=== PATIENT | female | born 1985 | race Caucasian/White ===

== ENCOUNTER → 2022-10-12 | Outpatient (CLI) | payer OTHER ==
[~2022-10-12] MED LIST: ANTOXYBENA BOTHEARS; ATEN25; Albuterol17 G1 INH; Amoxicillin500 MG PO; CEPH500 PO; CYCL10 PO; Cleocin HCl150 MG PO; FAMO20 PO; IBUP600 PO; IBUP800 PO; LORA.5 PO; MUCINEX; MUSCLE RELAXER; Methimazole5 MG; Monodox100 MG PO; PHENA200 PO; Pepcid20 MG PO; Percocet 5-3251 EACH PO; SULTRIDS PO; Synthroid200 MCG PO; TOBR.3OPSO BOTHEYES; TRAM50 PO; ZPAC; Zofran Odt4 MG SL; [UNRECOGNIZED DRUG - OTHER]
[2022-10-12 08:29] LABS: Source, Urine Clean Catch
[2022-10-12 09:30] LABS: Appearance, Urine Hazy (Clear); Bilirubin, Urine Neg (Neg); Blood, Urine 1+ (Neg); Color, Urine Yellow (P-Yellow); Glucose Qualitative, Urine Neg (Neg); Ketones, Urine 1+ (Neg); Leukocyte Esterase, Urine Neg (Neg); Nitrite, Urine Neg (Neg); Protein, Urine 2+ (Neg); Specific Gravity, Urine 1.025 (1.003-1.022); Urobilinogen, Urine NORM (Normal)
[2022-10-12 09:46] LABS: Bacteria Mod /hpf; Red Blood Cells, Urine 0-2 /hpf (0-2); Squamous Epithelial Cells Many /hpf (Few)
[2022-10-12 09:47] LABS: Mucus Mod (0-Heavy)
[2022-10-12 09:51] LABS: BASOPHILS ABSOLUTE AUTO 0.07 K/mm3 (0.00-0.23); BASOPHILS PERCENT AUTO 1 % (0-2); EOSINOPHILS ABSOLUTE AUTO 0.04 K/mm3 (0.00-0.68); EOSINOPHILS PERCENT AUTO 1 % (0-6); Hematocrit 33.3 % (33.0-51.0); IMMATURE GRAN ABSOLUTE AUTO 0.09 K/mm3 (0.00-0.10); IMMATURE GRAN PERCENT AUTO 1 % (0-1); LYMPHOCYTES PERCENT AUTO 20 % (21-46); MONOCYTES ABSOLUTE AUTO 0.41 K/mm3 (0.16-1.47); MONOCYTES PERCENT AUTO 5 % (4-13); Mean Corpuscular HGB 30.8 pg (26.0-34.0); Mean Corpuscular Volume 93 fL (80-100); Mean Platelet Volume 10.4 fL (9.1-12.4); NEUTROPHILS ABSOLUTE AUTO 6.08 K/mm3 (1.96-9.15); NEUTROPHILS PERCENT AUTO 72 % (41-73); Platelet Count 369 K/mm3 (150-400); RDW Coefficient Variation 12.8 % (11.7-14.2); RDW Standard Deviation 43.7 fL (35.1-46.3); Red Blood Cell Count 3.57 M/mm3 (3.80-5.20); White Blood Cell Count 8.39 K/mm3 (4.00-11.30)
[2022-10-12 10:15] LABS: Alanine Aminotransfer (ALT/SGP 29 U/L (12-78); Albumin, Blood 4.5 g/dL (3.4-5.0); Albumin/Globulin Ratio 1.4 (0.8-1.8); Alk Phos 53 U/L (50-136); Anion Gap 8 mmol/L (6-16); Aspartate Aminotrans (AST/SGOT 27 U/L (12-37); Bilirubin, Total 0.5 mg/dL (0.1-1.0); Blood Urea Nitrogen 13 mg/dL (8-24); Bun/Creatinine Ratio 12.4 (12.0-20.0); CHOL/HDL RATIO 7.4; CO2, Blood 25 mmol/L (21-32); Chloride, Blood 105 mmol/L (98-108); Cholesterol 327 mg/dL (50-200); Creatinine, Blood 1.05 mg/dL (0.40-1.00); Globulin, Blood 3.3 g/dL (2.2-4.0); Glomerular Filtration Rate 70 (60-); Glucose, Blood 95 mg/dL (70-99); HDL Cholesterol 44 mg/dL (>39); LDL/HDL RATIO 5.8; Low Density Lipoprotein Chol 254 mg/dL (0-110); Potassium, Blood 3.7 mmol/L (3.5-5.5); Sodium, Blood 138 mmol/L (136-145); Total Protein, Blood 7.8 g/dL (6.4-8.2); Triglycerides 143 mg/dL (30-140); Very Low Density Lipoprot Chol 28 mg/dL (6-28)
== END | disposition home or self-care (01) ==
LOC: LAB SHORT 08:26 → LAB 08:26
PROVIDERS: Nurse Practitioner Family
DX: Z00.00 Encounter for general adult medical examination without abnormal findings (principal); N10 Acute pyelonephritis
CPT/HCPCS: 80053; 80061; 81001; 83036; 84443; 85025; 87086

== ENCOUNTER 2024-04-28 17:45 | Emergency (ER) | payer OTHER ==
[~2024-04-28] VITALS: Ht 170.2 cm; Wt 81.7 kg
[2024-04-28 17:54] VITALS: BP 123/90
== END 2024-04-28 22:11 | disposition home or self-care (01) ==
LOC: ER 17:45
DX: S61.411A Laceration without foreign body of right hand, initial encounter (principal); W26.0XXA Contact with knife, initial encounter; Z88.8 Allergy status to other drugs, medicaments and biological substances; Z87.891 Personal history of nicotine dependence
CPT/HCPCS: 12001; 73130; 99283-25

== ENCOUNTER 2025-01-13 12:35 | Observation (INO) | payer OTHER ==
[~2025-01-13] VITALS: Ht 170.2 cm; Wt 79.4 kg
[2025-01-13 13:32] LABS: BASOPHILS ABSOLUTE AUTO 0.09 K/mm3 (0.00-0.23); BASOPHILS PERCENT AUTO 0 % (0-2); EOSINOPHILS ABSOLUTE AUTO 0.13 K/mm3 (0.00-0.68); EOSINOPHILS PERCENT AUTO 1 % (0-6); Hematocrit 42.5 % (33.0-51.0); Hemoglobin 13.6 g/dL (11.5-16.0); IMMATURE GRAN ABSOLUTE AUTO 0.20 K/mm3 (0.00-0.10); IMMATURE GRAN PERCENT AUTO 1 % (0-1); LYMPHOCYTES ABSOLUTE AUTO 1.32 K/mm3 (0.84-5.20); LYMPHOCYTES PERCENT AUTO 6 % (21-46); MONOCYTES ABSOLUTE AUTO 1.81 K/mm3 (0.16-1.47); MONOCYTES PERCENT AUTO 8 % (4-13); Mean Corpuscular HGB Conc 32.0 g/dL (31.5-36.5); Mean Corpuscular Volume 86 fL (80-100); NEUTROPHILS ABSOLUTE AUTO 19.87 K/mm3 (1.96-9.15); NEUTROPHILS PERCENT AUTO 85 % (41-73); NRBC ABSOLUTE 0.00 K/mm3 (0.00-0.02); NRBC Auto 0.0 /100 WBC (0.0-0.2); Platelet Count 379 K/mm3 (150-400); RDW Coefficient Variation 14.7 % (11.7-14.2); RDW Standard Deviation 45.6 fL (35.1-46.3)
[2025-01-13] MEDS ORDERED: Levothyroxine Sodium 0.15 MG Tab PO ONE (13:40)
[2025-01-13] MEDS ORDERED: Ondansetron 4 MG SoluTab SL ONE (13:40)
[2025-01-13 13:55] LABS: Ethanol (Alcohol), Blood, Med <3 mg/dL; Salicylate <1.7 mg/dL (2.8-20.0)
[2025-01-13 13:57] LABS: Source, Urine Clean Catch
[2025-01-13] MEDS ORDERED: NS 1,000 ML IV SCH (14:00)
[2025-01-13 14:02] LABS: Bilirubin, Urine Neg (Neg); Color, Urine Yellow (P-Yellow); Glucose Qualitative, Urine Neg (Neg); Ketones, Urine 3+ (Neg); Leukocyte Esterase, Urine 3+ (Neg); Protein, Urine 4+ (Neg); Specific Gravity, Urine 1.010 (1.003-1.022); Urobilinogen, Urine NORM (Normal)
[2025-01-13 14:10] LABS: Red Blood Cells, Urine 25-50 /hpf (0-2); White Blood Cells, Urine 50-100 /hpf (0-5)
[2025-01-13 14:12] LABS: Alanine Aminotransfer (ALT/SGP 52 U/L (12-78); Albumin, Blood 4.3 g/dL (3.4-5.0); Albumin/Globulin Ratio 1.0 (0.8-1.8); Anion Gap 14 mmol/L (3-11); Aspartate Aminotrans (AST/SGOT 66 U/L (12-37); Bilirubin, Total 0.6 mg/dL (0.1-1.0); Blood Urea Nitrogen 13 mg/dL (8-24); CO2, Blood 21 mmol/L (21-32); Calcium, Blood 8.6 mg/dL (8.5-10.1); Chloride, Blood 101 mmol/L (98-108); Creatinine, Blood 1.20 mg/dL (0.40-1.00); Globulin, Blood 4.3 g/dL (2.2-4.0); Glucose, Blood 110 mg/dL (70-99); Potassium, Blood 3.5 mmol/L (3.5-5.5); Sodium, Blood 132 mmol/L (136-145); Total Protein, Blood 8.6 g/dL (6.4-8.2)
[2025-01-13 14:18] LABS: U Amphetamine Screen Not Detected; U Barbituate Screen Not Detected; U Benzodiazapine Screen Not Detected; U Buprenorphine Screen Not Detected; U Cannabinoids Screen DETECTED; U Cocaine Screen Not Detected; U Methadone Screen Not Detected; U Methamphetamine Screen Not Detected; U Opiates Screen Not Detected; U Oxycodone Screen Not Detected; U Phencyclidine Screen Not Detected
[2025-01-13] MEDS ORDERED: Ondansetron HCl 2 MG / ML 2ML Vial IV ONE ×2 (14:30→18:50)
[2025-01-13 14:50] LABS: Acetaminophen, Random <2.0 ug/mL (10.0-30.0)
[2025-01-13] MEDS ORDERED: VENLAFAXINE (15:20)
[2025-01-13] MEDS ORDERED: CefTRIAXone Sodium 1,000 MG in NS 100 ML IV ONE (16:10)
[2025-01-14] MEDS ORDERED: Levothyroxine Sodium 0.15 MG Tab PO SCH (06:00)
[2025-01-14 07:30] VITALS: BP 131/91
== END 2025-01-14 13:52 | disposition other institution (70) ==
LOC: ER 12:35 → EOR 12:36
PROVIDERS: Physician Assistant; ADMIT Emergency Medicine
DX: F33.2 Major depressive disorder, recurrent severe without psychotic features (principal); R45.851 Suicidal ideations; N39.0 Urinary tract infection, site not specified; E89.0 Postprocedural hypothyroidism; Z79.890 Hormone replacement therapy; Z88.1 Allergy status to other antibiotic agents; Z87.891 Personal history of nicotine dependence
CPT/HCPCS: 74177; 80053; 80320; 81001; 81025; 85025; 86592; 87086; 96361; 96365-59; 96375; 96376; 99285-25; A9270; G0378; G0480; J0696; J2405; J7030; Q9967

== ENCOUNTER 2025-01-14 08:53 | Inpatient (IN) | payer OTHER ==
[~2025-01-14] VITALS: Ht 170.2 cm; Wt 77.9 kg
[~2025-01-14 08:53] MED LIST changes: +VENLAFAXINE
[2025-01-14] MEDS ORDERED: Aluminum Hydroxide 320MG/5ML 473 ML PO PRN (11:15)
[2025-01-14] MEDS ORDERED: Polyethylene Glycol 3350 17 gm PO PRN (11:15)
[2025-01-14] MEDS ORDERED: Ondansetron 4 MG SoluTab MM PRN (11:20)
[2025-01-14] MEDS ORDERED: FLU VACC TS2025-26(6MOS UP)/PF 45 MCG/0.5 ML SYRINGE IM SCH (11:20)
[2025-01-14 14:08] VITALS: BP 110/87
[2025-01-14 14:28] VITALS: BP 110/87
--- NOTE | 2025-01-14 16:06 | NUR ---
ADMISSION PATIENT ADMITTED FROM [facility] FOR SI. PT WAS BROUGHT INTO THE ED BY [place] [employer] FOR STATING SHE WAS SUICIDAL. PT DENIES SI/HI/AVTH AT THIS CURRENT TIME. PT STATED THAT SHE DID NOT HAVE A PLAN THEN OR NOW. PT STATES THAT HOME LIFE/SITUATION IS A MAJOR STRESSOR/CONTRIBUTING FACTOR TO HER SI. SHE STATED THAT SHE IS HOPING TO GET SOME RESOURCES FOR HOUSING PRIOR TO DISCHARGE. PT DECLINED TO PLACE ANYONE ON HER AUTHORIZED CONTACT LIST AT THIS TIME. PT IS AOX4 AND HAS A UTI THAT SHE IS RECEIVNG ORAL ANTIBIOTICS FOR. PT WAS EXPERIENCING NAUSEA AND DIARRHEA WHILE IN THE ED. DENIES ANY CURRENTLY. DURING INTAKE AND ADMISSION PROCESS, CLIENT MADE GOOD EYE CONTACT AND COMMUNICATED IN A NORMAL TONE OF VOICE. PT APPEARED TO BE A GOOD HISTORIAN. PT WAS ORIENTED TO THE UNIT AND PROVIDED WITH WATER AND OPPERTUNITY FOR A SNACK.
[2025-01-14 20:41] VITALS: BP 132/91
--- NOTE | 2025-01-15 04:06 | NUR ---
SHIFT SUMMARY PATIENT UP IN MILIEU WATCHING TV. VERBALIZED THAT SHE IS FEELING "OVERWHELMED" AND HAVING INTRUSIVE THOUGHTS DESCRIBED HER IMAGINATION, EXAMPLE THAT SHE GAVE IS, THE THOUGHTS MAKING HER THINK THAT SHE KNOWS EVERYONE HERE IN [facility], WHEN SHE REALLY DOESN'T KNOW EVERYONE. PATIENT VERBALIZED THAT SHE IS THANKFUL TO BE HERE AND IS HOPING TO BE ABLE TO GET OUT OF HER CURRENT LIVING SITUATION AND MOVE ON TO A SAFER LIFE. DENIES SI, HI, OR AVH. REQUESTING NICOTINE GUM. REQUESTING TRAZODONE FOR SLEEP AID. PATIENT APPEARS TO BE SLEEPING WELL T/O NIGHT RESP EVEN AND UNLABORED. CONTINUE TO MONITOR Q15MIN.
[2025-01-15 08:00] LABS: CHOL/HDL RATIO 5.7; Cholesterol 278 mg/dL (50-200); HDL Cholesterol 49 mg/dL (>39); LDL/HDL RATIO 3.9; Low Density Lipoprotein Chol 189 mg/dL (0-110); Triglycerides 200 mg/dL (30-160); Very Low Density Lipoprot Chol 40 mg/dL (6-32)
[2025-01-15] MEDS ORDERED: Multivitamins 1 Tab PO SCH (09:00)
[2025-01-15 09:10] VITALS: BP 119/91
--- NOTE | 2025-01-15 18:07 | NUR ---
SHIFT SUMMARY [age] YEAR OLD FEMALE PRESENTS WELL GROOMED AND IS ABLE TO MAKE AND MAINTAIN EYE CONTACT. PT SPEAKS WITH A REGULAR CARLOS AND IN A SOFT VOLUME. WHEN ASKED, SHE STATED THAT SHE FELT "PRETTY GOOD" AND THAT SHE HAD SLEPT WELL. PT ENDORSED THAT SHE FELT COMFORTABLE ON THE MILIEU. PT IS ALERT AND ORIENTED X 4. SHE DENIES SI, HI, AND AVTH AND THIS TIME. PT HAS NOT UTILIZED AND PRN MEDICATIONS THIS SHIFT. CLIENT CONTINUES TO BE MONITORED Q15 MINUTES FOR SAFETY AND Q4 HOURS ROOM CHECKS FOR SAFETY.
[2025-01-15 19:19] VITALS: BP 132/96
--- NOTE | 2025-01-16 04:51 | NUR ---
SHIFT SUMMARY PATIENT UP IN MILIEU WATCHING TV WITH PEERS. DENIES SI, HI, OR AVH. VERBALIZED THAT SHE HAD A GOOD DAY, BUT IS TIRED. REQUESTING TRAZODONE FOR SLEEP. PATIENT APPEARS TO BE SLEEPING WELL T/O NIGHT RESP EVEN AND UNLABORED. CONTINUE TO MONITOR Q15MIN
[2025-01-16 08:18] VITALS: BP 136/99
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
[2025-01-16 19:26] VITALS: BP 145/101
--- NOTE | 2025-01-16 23:50 | NUR ---
SHIFT SUMMARY Pt is A&O, calm, cooperative, polite, eye contact is appropriate. Pt stated that her mood was" upbeat but tired," affect is congruent to stated mood. Pt denies SI, HI, and hallucinations. Pt endorsed menstrual pain 3/10w. Pt was active on the milieu during the evening, watching TV with peers and staff. Pt requested PRN ibuprofen for menstrual pain and trazodone for sleep during HS med pass. Staff continues to monitor q15m for safety and wellness.
--- NOTE | 2025-01-17 04:22 | NUR ---
SHIFT SUMMARY: PLEASE SEE PREVIOUS NOTE WRITTEN BY YOHAN WU. ASSUMED CARE OF PT AT 0000. PT HAS SLEPT WELL. GOT UP FOR REQUEST OF TAMPON. NO MENTION OF MENSTRUAL PAIN. RETURNED BACK TO SLEEP. WILL CONTINUE TO MONITOR Q 15 MIN FOR SAFETY AND WELLNESS.
[2025-01-17 08:49] VITALS: BP 137/101
--- NOTE | 2025-01-17 13:34 | NUR ---
SHIFT SUMMARY PT ACTIVE IN THE MILIEU THIS SHIFT. SHE DENIES ANY SI/HI AND HAULLUCINATIONS. SHE HAS BEEN COOPERATIVE WITH MEDICATIONS AND THE ONLY PRN MED GIVEN HAS BEEN THE NICOTINE GUM. SHE IS EUTHYMIC AND INTERACTS WELL WITH PEERS. NO ACUTE BEHAVIORS OR ISSUES AT THIS TIME.
--- NOTE | 2025-01-17 17:39 | NUR ---
ASSUMED PT CARE @1400. PRN ADVIL GIVEN FOR MENSTRAUL CRAMPS WITH PAIN OF 6/10. NICORETTE GUM GIVEN X1. PT DENIES ANY OTHER NEEDS AT THIS TIME. WILL CONTINUE PLAN OF CARE
[2025-01-17 20:48] VITALS: BP 149/104
--- NOTE | 2025-01-18 05:44 | NUR ---
SHIFT SUMMARY Pt is A&O, calm, cooperative, polite, appropriately dressed and groomed, eye contact is appropriate. Pt stated that her mood was allright, affect is euthymic, congruent to stated mood. Pt denies SI, HI, and hallucinations. Pt denied current pain. Pt stated that she had a goofy fix when discussing discharge with staff,but has been feeling good since. Pt endorses constipation, but wanted to wait until morning to take bowel meds. Pt has been taking PRN ibuprofen as needed to control menstrual pain and cramping. Pt was active on the milieu during the evening, watching TV with peers and staff. Pt requested PRN trazodone for sleep during HS med pass. At about 0220 pt approached the nurse station and requested Miralax for constipation and nicotine gum for cravings. Pt returned to her room after receiving her PRNs. Staff continues to monitor q15m for safety and wellness.
[2025-01-18 09:10] VITALS: BP 144/109
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
[2025-01-18 20:00] VITALS: BP 134/100
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
[2025-01-19 08:58] VITALS: BP 126/92
--- NOTE | 2025-01-19 17:28 | NUR ---
Shift Summary Pt A/O x4; pleasant and cooperative with care. She denies SI, HI, AVTH. She reports that she is doing much better today and that she is having "less angry thoughts". She did become anxious one time this shift when another pt was having a conflict and was treated per EMR with good effect. Her affect is congruent to stated mood. Pt would like a flu shot before she leaves and pharmacy is going to stock the flu shot tomorrow.
[2025-01-19 19:44] VITALS: BP 140/105
--- NOTE | 2025-01-20 05:52 | NUR ---
SHIFT SUMMARY Pt is A&O, calm, cooperative, polite, appropriately dressed and groomed, eye contact is appropriate. Pt stated that her mood was "flighty," affect is anxious. Pt denies SI, HI, and hallucinations. Pt endorsed current headache pain of 6/10w and received PRN APAP, which brought pain down to 4 upon reevaluation. Pt stated that she had been thinking about some woulda, shoulda, coulda situations in her life and reflecting on what she is going to do once she is discharged. Pt spent most of the evening walking the cartwright and listening to music. She requested PRN hydroxyzine with her HS meds for MASS 3. At about 2235 she approached the nurse station and requested PRN calcium carbonate for heartburn. Staff continues to monitor q15m for safety and wellness.
[2025-01-20 07:52] VITALS: BP 128/99
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
--- NOTE | 2025-01-20 18:13 | NUR ---
SHIFT SUMMARY [age] YEAR OLF FEMALE PRESENTS WELL GROOMED AND ABLE TO MAKE AND KEEP EYE CONTACT THROUGHOUT CONVERSATIONS. SHE HAS BEEN COOPERATIVE WITH CARE AND INTERACTS WELL WITH STAFF AND PEERS. PT DENIED SI, HI, AND AVTH AT THIS TIME. SHE IS ALERT AND ORIENTED. SHE CONTINUE TO COMMUNICATE CLEARLY IN A REGULAR VOLUME. PT REPORTED HAVING A HEADACHE AND WAS MEDICATED WITH TYLENOL AT 1305. CLIENT REPORTED FEELING GOOD, BUT A LITTLE NERVOUS ABOUT HER UPCOMING DISCHARGE. SHE CONTINUES TO BE MONITORED Q15 MINUTES FOR SAFETY AND CARE
[2025-01-20 19:24] VITALS: BP 128/102
--- NOTE | 2025-01-21 06:24 | NUR ---
vvvvvvvvvSHIFT SUMMARY Pt is A&O, calm, cooperative, polite, appropriately dressed and groomed, eye contact is appropriate. Pt stated that her mood was "okay," affect is euthymic and congruent. Pt denies SI, HI, and hallucinations. Pt denied current pain or other medical issues. Pt reported increased anxiety. Pt stated that she has felt lonely since her roommate was discharged and that she doesn t do well being alone. Pt spent most of the evening walking the cartwright and listening to music. She requested PRN hydroxyzine with her HS meds for MASS 3. At about 2210 pt approached staff and requested PRN nicotine gum. At about 0520 pt approached the nurse station and requested PRN APAP for headache pain 4/10w. Staff continues to monitor q15m for safety and wellness.
[2025-01-21 07:26] VITALS: BP 118/93
[2025-01-21] MEDS ORDERED: CEFD300 PO (15:23)
[2025-01-21] MEDS ORDERED: QUET300 PO (15:28)
[2025-01-21] MEDS ORDERED: VENL75ER PO (15:29)
--- NOTE | 2025-01-21 16:15 | NUR ---
SHIFT SUMMARY 39YEAR-OLD FEMALE PRESENTS WEEL GROOMED AND ABLE TO MAKE AND KEEP EYE CONTACT DURING CONVERSATIONS. SHE SPEAKS IN A CLEAR VOICE AT AN APPROPRIATE VOLUME. SHE HAS BEEN CALM AND COOPERATIVE WITH CARE. SHE HAD ATTENDED ALL GROUPS AND MEALS AND INTERACTED WELL WITH STAFF AND PEERS. RECEIVED A PRN FOR NAUSEA THIS SHIFT. DENIES SI, HI, AVTH AT THIS TIME. CONTINUES TO BE MONITORED Q15 MINUTES FOR SAFET AND CARE.
[2025-01-21 21:21] VITALS: BP 125/94
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
--- NOTE | 2025-01-22 08:04 | NUR ---
IMPORTANT DISCHARGE INFORMATION PATIENT TO BE DISCHARGED TODAY. SHE WILL BE GOING TO HER BROTHERS APARTMENT ON [address]. SHE IS REQUESTING TO WALK THERE. SHE HAS BEEN INFORMED SHE HAS TRANSPORT SERVICES HOWEVER, SHE IS STILL WANTING TO LEAVE ON FOOT. ALL PARTIES VERBALIZE AN UNDERSTANDING. SHE IS WANTING TO BE DISCHARGED AT 11AM. FOLLOW UP APPOINTMENTS: PCP AT [facility] FOR 01/27/25 AT 9AM. MENTAL HEALTH REFERRAL PLACED FOR SERVICES AT [facility]. [facility] ARE AVAILABLE [facility]: [facility] FAX # [phone] RESOURCES GIVEN: [facility], [employer], [facility], CLOTHING AND FOOD PANTRIES.
[2025-01-22 08:33] VITALS: BP 124/84
[2025-01-22] MEDS ORDERED: LEVSOD100 PO (09:29)
--- NOTE | 2025-01-22 11:23 | NUR ---
DISCHARGE NOTE 39 YEAR-OLD FEMALE PRESENTS WELL GROOMED AND ABLE TO MAKE AND KEEP EYE CONTACT DURING CONVERSATIONS. PT COMMUNICATES CLEARLY AND FLUENTLY IN A REGULAR VOLUME. SHE STATED THAT SHE WAS EXCITED ABOUT HER PENDING DISCHARGE TODAY AND HER AFFECT WAS CONGRUENT TO HER STATED MOOD. SHE HAS BEEN CALM AND COOPERATIVE WITH CARE. SHE HAS ATTENDED ALL GROUPS AND MEALS. HAS INTERACTED WELL WITH STAFF AND PEERS. DENIES SI, HI, AND AVTH. DISCHARGE ORDERS RECEIVED. DISCHARGE PACKET PRESENTED AND EXPLAINED TO PT. PT GIVEN OPPERTUNITY TO ASK QUESTIONS ABOUT DISCHARGE AND AFTERCARE. PT VOICED NO QUESTIONS AT THIS TIME. PT'S PROPERTY WAS RETURNED AND SHE LEFT THE UNIT AT 1102.
== END 2025-01-22 11:05 | disposition home or self-care (01) | DRG 885 ==
LOC: BHU 08:53
PROVIDERS: ADMIT Student in an Organized Health Care Education/Training Program
DX: F33.2 Major depressive disorder, recurrent severe without psychotic features (principal); E03.9 Hypothyroidism, unspecified; Z88.8 Allergy status to other drugs, medicaments and biological substances; Z79.890 Hormone replacement therapy; Z79.899 Other long term (current) drug therapy
CPT/HCPCS: 36415; 80061; 83036; A9270